=== PATIENT | female | born 1980 | race African-American/Black ===

== ENCOUNTER 2018-11-29 13:16 | Emergency (ER) | payer OTHER ==
[2018-11-29] MEDS: IBUPROFEN 600 MG TAB PO (16:24)
== END 2018-11-29 17:47 | disposition home or self-care (01) ==
LOC: FTE 17:47
DX: S16.1XXA Strain of muscle, fascia and tendon at neck level, initial encounter (principal); F17.210 Nicotine dependence, cigarettes, uncomplicated; V89.2XXA Person injured in unspecified motor-vehicle accident, traffic, initial encounter
CPT/HCPCS: 72040; 73130-LT; 99284-25